=== PATIENT | male | born 1975 | race Caucasian/White ===

== ENCOUNTER 2019-02-24 11:59 | Emergency (ER) | payer MEDICARE, MEDICAID ==
--- NOTE | 2019-02-24 13:10 | RAD ---
XR Ankle Rt 3 View STANDARD History: Fall Comparison: None. Findings: No acute displaced fracture or malalignment. No osteochondral defect of the talar dome. Mil d bimalleolar soft tissue swelling. Impression: No acute displaced fracture.
[2019-02-24] MEDS ORDERED: Ketorolac Tromethamine 30 MG/ML VIAL ONE (14:00)
--- NOTE | 2019-02-24 14:07 | RAD ---
2 VIEWS RIGHT HIP: Date: 02/24/2019 COMPARISON: None. HISTORY: Found on floor with possible fall. Right hip pain. FINDINGS: 2 views of the right hip show no evidence of acute fracture or dislocation. No degenerative changes a re seen. IMPRESSION: Unremarkable exam. POS: CET
--- NOTE | 2019-02-24 14:11 | RAD ---
RIGHT KNEE 4 VIEWS: Date: 02/24/2019 HISTORY: Knee injury. FINDINGS: There are no signs of fracture, dislocation, or joint effusion. IMPRESSION: Negative right knee. POS: FADIA
--- NOTE | 2019-02-24 15:36 | RAD ---
RIGHT TIBIA AND FIBULA TWO VIEWS: HISTORY: Injury to tibia and fibula region. FINDINGS: There are no signs of fracture or dislocation. IMPRESSION: Negative right tibia and fibula. POS: FADIA
== END 2019-02-24 14:11 | disposition home or self-care (01) ==
LOC: MADERS 11:59
DX: S70.01XA Contusion of right hip, initial encounter (principal); W18.30XA Fall on same level, unspecified, initial encounter
CPT/HCPCS: 96372; J1885